=== PATIENT | female | born 1940 | race African-American/Black ===

== ENCOUNTER 2022-07-04 14:30 | Emergency (ER) | payer MEDICARE, OTHER ==
[~2022-07-04] VITALS: Ht 152.4 cm; Wt 105.0 kg
[~2022-07-04 14:30] MED LIST: BENA-8 PO; DIPH25CA83 PO; IBUP100T54 PO; PHEN100C4 PO
[2022-07-04] MEDS ORDERED: ACETAMINOPHEN 325MG TABLET PO STA (17:18)
[2022-07-04 17:44] LABS: BASOPHILS % 0.7 % (0.0-2.0); EOSINOPHILS % 0.1 % (0.0-5.0); HEMATOCRIT. 35.4 % (36.0-48.0); HEMOGLOBIN. 11.4 g/dL (12.0-16.0); LYMPHOCYTES % 21.8 % (20.0-50.0); MEAN CORPUSCULAR HEMOGLOBIN 26.2 pg (28.0-32.0); MEAN CORPUSCULAR VOLUME 81.3 fL (81.0-99.0); MEAN PLATELET VOLUME 8.9 fl (7.4-10.4); MONOCYTES % 11.7 % (2.0-8.0); NEUTROPHILS % 65.7 % (40.0-76.0); PLATELET 340 x1000/uL (130-400); RED BLOOD CELL COUNT 4.35 mill/uL (4.2-5.4); RED CELL DISTRIBUTION WIDTH 17.9 % (11.6-14.6)
[2022-07-04 17:57] LABS: CHLORIDE 103 mEq/L (98-107)
[2022-07-04 20:58] LABS: CLARITY URINE CLEAR (CLEAR); COLOR URINE YELLOW (YELLOW); KETONES URINE 1+ (NEGATIVE); LEUKOCYTE ESTERASE URINE 1+ (NEGATIVE); NITRITE URINE NEGATIVE (NEGATIVE); OCCULT BLOOD URINE NEGATIVE (NEGATIVE); PH URINE 6.5 (4.5-8.0); PROTEIN URINE NEGATIVE (NEGATIVE); SPECIFIC GRAVITY URINE 1.021 (1.005-1.030)
[2022-07-04 21:41] VITALS: BP 122/62
== END 2022-07-04 21:46 | disposition home or self-care (01) ==
LOC: ER 14:44
DX: I11.0 Hypertensive heart disease with heart failure (principal); I50.9 Heart failure, unspecified; J45.909 Unspecified asthma, uncomplicated; M79.606 Pain in leg, unspecified
CPT/HCPCS: 36415; 71045; 80053; 81003; 83880; 85025; 93005; 93970; 99285

== ENCOUNTER 2022-11-11 12:08 | Inpatient (IN) | payer MEDICARE, OTHER ==
[~2022-11-11] VITALS: Ht 152.4 cm; Wt 108.2 kg
[2022-11-11] MEDS ORDERED: FUROSEMIDE 40MG/4ML VIAL IV ONE (12:45)
[2022-11-11] MEDS ORDERED: NITROGLYCERIN 0.4MG TABLET SL SL PRN (12:45)
[2022-11-11] MEDS ORDERED: ASPIRIN 81MG TABLET PO ONE (12:45)
[2022-11-11] MEDS ORDERED: DILTIAZEM HCL 60MG TABLET PO SCH (13:00)
[2022-11-11 13:12] LABS: BASOPHILS % 0.5 % (0.0-2.0); EOSINOPHILS % 0.1 % (0.0-5.0); HEMOGLOBIN. 10.5 g/dL (12.0-16.0); LYMPHOCYTES % 9.7 % (20.0-50.0); MEAN CORPUSCULAR VOLUME 75.4 fL (81.0-99.0); MEAN PLATELET VOLUME 8.7 fl (7.4-10.4); MONOCYTES % 9.1 % (2.0-8.0); NEUTROPHILS % 80.6 % (40.0-76.0); PLATELET 281 x1000/uL (130-400); RED BLOOD CELL COUNT 4.37 mill/uL (4.2-5.4); RED CELL DISTRIBUTION WIDTH 18.9 % (11.6-14.6)
[2022-11-11 13:23] LABS: CHLORIDE 106 mEq/L (98-107)
[2022-11-11 13:25] LABS: D-DIMER 1.23 mg/L FEU (<0.50); INR 1.1; PROTHROMBIN TIME 11.8 sec (9.6-11.0)
[2022-11-11] MEDS: DILTIAZEM HCL 30MG TABLET PO SCH ×3 (13:26→23:46)
[2022-11-11 13:41] LABS: T4 FREE 1.19 ng/dL (0.76-1.46)
[2022-11-11] MEDS ORDERED: ENOXAPARIN 120MG/0.8ML SYR SUBCUT SCH (15:00)
[2022-11-11] MEDS ORDERED: ENOXAPARIN 120MG/0.8ML SYR SUBCUT ONE (16:00)
[2022-11-11] MEDS: APIXABAN 5 MG TABLET PO SCH (17:56)
[2022-11-11] MEDS: FUROSEMIDE 40MG/4ML VIAL IVP SCH (17:56)
[2022-11-11] MEDS ORDERED: DILTIAZEM HCL 30MG TABLET PO SCH (18:00)
[2022-11-11 19:20] VITALS: BP 112/72
[2022-11-11 20:00] VITALS: BP 112/72
[2022-11-11] MEDS ORDERED: ACETAMINOPHEN 325MG TABLET PO PRN (22:00)
[2022-11-11] MEDS ORDERED: HYDROCODONE/ACETAMINOPHEN 5/325MG TABLET PO PRN (22:00)
[2022-11-11] MEDS ORDERED: ONDANSETRON HCL 4MG/2ML INJ IV PRN (22:00)
[2022-11-11 22:19] LABS: HEPATITIS B SURFACE ANTIGEN NEGATIVE
[2022-11-11] MEDS: PHENYTOIN SODIUM EXTENDED 100MG CAPSULE PO SCH (22:21)
[2022-11-11] MEDS ORDERED: HYDR-459 PO (22:44)
[2022-11-11] MEDS ORDERED: METO25TA6 PO (22:44)
[2022-11-11] MEDS ORDERED: BENA40TA91 PO (22:44)
[2022-11-11] MEDS ORDERED: PANT40TA51 PO (22:44)
[2022-11-11] MEDS ORDERED: POTA-202 PO (22:44)
[2022-11-11] MEDS ORDERED: FURO40TA5 PO (22:44)
[2022-11-11] MEDS ORDERED: ATOR10TA69 PO (22:44)
[2022-11-11] MEDS ORDERED: APIX5TAB PO (22:44)
[2022-11-11] MEDS ORDERED: DIGO125T80 PO (22:44)
[2022-11-12] VITALS: BP 93/47
[2022-11-12 04:00] VITALS: BP 110/54
[2022-11-12] MEDS: DILTIAZEM HCL 30MG TABLET PO SCH ×3 (05:04→17:24)
[2022-11-12 07:26] LABS: BASOPHILS % 1.3 % (0.0-2.0); EOSINOPHILS % 0.1 % (0.0-5.0); HEMOGLOBIN. 9.4 g/dL (12.0-16.0); LYMPHOCYTES % 27.2 % (20.0-50.0); MEAN CORPUSCULAR HEMOGLOBIN 24.1 pg (28.0-32.0); MEAN CORPUSCULAR VOLUME 74.2 fL (81.0-99.0); MEAN PLATELET VOLUME 8.9 fl (7.4-10.4); MONOCYTES % 14.5 % (2.0-8.0); NEUTROPHILS % 56.9 % (40.0-76.0); PLATELET 238 x1000/uL (130-400); RED BLOOD CELL COUNT 3.92 mill/uL (4.2-5.4)
[2022-11-12 08:00] VITALS: BP 107/63
[2022-11-12] MEDS: PHENYTOIN SODIUM EXTENDED 100MG CAPSULE PO SCH (10:07)
[2022-11-12] MEDS: FUROSEMIDE 40MG/4ML VIAL IVP SCH ×2 (10:08→17:24)
[2022-11-12] MEDS: APIXABAN 5 MG TABLET PO SCH ×2 (10:08→16:41)
[2022-11-12] MEDS ORDERED: METOLAZONE 2.5MG TABLET PO SCH ×2 (10:30→16:30)
[2022-11-12 12:00] VITALS: BP 109/17
[2022-11-12 16:00] VITALS: BP 106/65
[2022-11-12] MEDS ORDERED: NALOXONE HCL 0.4MG/ML VIAL IV PRN (18:45)
[2022-11-12 20:00] VITALS: BP 131/49
[2022-11-12] MEDS: CARVEDILOL 3.125 MG TABLET PO SCH (21:39)
[2022-11-13] VITALS: BP 90/53
[2022-11-13 04:00] VITALS: BP 109/54
[2022-11-13] MEDS: DILTIAZEM HCL 30MG TABLET PO SCH ×4 (06:00→17:18)
[2022-11-13 06:17] LABS: BASOPHILS % 0.6 % (0.0-2.0); EOSINOPHILS % 0.1 % (0.0-5.0); HEMATOCRIT. 28.8 % (36.0-48.0); HEMOGLOBIN. 9.3 g/dL (12.0-16.0); LYMPHOCYTES % 26.1 % (20.0-50.0); MEAN CORPUSCULAR HEMOGLOBIN 23.8 pg (28.0-32.0); MEAN CORPUSCULAR VOLUME 74.2 fL (81.0-99.0); MEAN PLATELET VOLUME 8.6 fl (7.4-10.4); MONOCYTES % 12.9 % (2.0-8.0); NEUTROPHILS % 60.3 % (40.0-76.0); PLATELET 255 x1000/uL (130-400); RED BLOOD CELL COUNT 3.89 mill/uL (4.2-5.4); RED CELL DISTRIBUTION WIDTH 18.6 % (11.6-14.6)
[2022-11-13 08:00] VITALS: BP 105/57
[2022-11-13] MEDS: FUROSEMIDE 40MG/4ML VIAL IVP SCH ×2 (08:32→17:18)
[2022-11-13] MEDS: CARVEDILOL 3.125 MG TABLET PO SCH ×2 (08:33→20:49)
[2022-11-13] MEDS: PHENYTOIN SODIUM EXTENDED 100MG CAPSULE PO SCH (08:34)
[2022-11-13] MEDS: APIXABAN 5 MG TABLET PO SCH ×2 (08:34→17:18)
[2022-11-13] MEDS: IPRATROPIUM/ALBUTEROL 0.5-3(2.5)MG/3ML NEB HHN SCH ×5 (09:24→23:50)
[2022-11-13 12:00] VITALS: BP 102/68
[2022-11-13 16:00] VITALS: BP 139/84
[2022-11-13] MEDS ORDERED: METOLAZONE 2.5MG TABLET PO NR (16:45)
[2022-11-13 20:00] VITALS: BP 99/71
[2022-11-14] VITALS: BP 95/42
[2022-11-14] MEDS ORDERED: CARVEDILOL 3.125 MG TABLET PO NR (01:00)
[2022-11-14] MEDS: IPRATROPIUM/ALBUTEROL 0.5-3(2.5)MG/3ML NEB HHN SCH ×4 (03:50→15:11)
[2022-11-14 04:00] VITALS: BP 93/66
[2022-11-14] MEDS: DILTIAZEM HCL 30MG TABLET PO SCH ×3 (05:49→17:04)
[2022-11-14 06:42] LABS: BASOPHILS % 0.8 % (0.0-2.0); EOSINOPHILS % 0.1 % (0.0-5.0); HEMATOCRIT. 30.7 % (36.0-48.0); HEMOGLOBIN. 9.9 g/dL (12.0-16.0); LYMPHOCYTES % 22.7 % (20.0-50.0); MEAN CORPUSCULAR HEMOGLOBIN 23.7 pg (28.0-32.0); MEAN CORPUSCULAR VOLUME 73.6 fL (81.0-99.0); MEAN PLATELET VOLUME 8.4 fl (7.4-10.4); MONOCYTES % 12.6 % (2.0-8.0); NEUTROPHILS % 63.8 % (40.0-76.0); PLATELET 256 x1000/uL (130-400); RED BLOOD CELL COUNT 4.17 mill/uL (4.2-5.4); RED CELL DISTRIBUTION WIDTH 18.9 % (11.6-14.6)
[2022-11-14 08:00] VITALS: BP 90/54
[2022-11-14] MEDS: APIXABAN 5 MG TABLET PO SCH ×2 (08:54→17:01)
[2022-11-14] MEDS: FUROSEMIDE 40MG/4ML VIAL IVP SCH ×2 (08:54→17:01)
[2022-11-14] MEDS: PHENYTOIN SODIUM EXTENDED 100MG CAPSULE PO SCH (08:54)
[2022-11-14] MEDS: CARVEDILOL 3.125 MG TABLET PO SCH ×2 (08:59→21:00)
[2022-11-14 12:00] VITALS: BP 93/52
[2022-11-14 16:00] VITALS: BP 112/62
[2022-11-14 20:00] VITALS: BP 96/46
[2022-11-15] VITALS: BP 112/49
[2022-11-15] MEDS: DILTIAZEM HCL 30MG TABLET PO SCH ×3 (00:40→12:18)
[2022-11-15 04:00] VITALS: BP 114/60
[2022-11-15] MEDS: IPRATROPIUM/ALBUTEROL 0.5-3(2.5)MG/3ML NEB HHN SCH ×2 (04:50→13:20)
[2022-11-15 07:23] LABS: BASOPHILS % 0.6 % (0.0-2.0); EOSINOPHILS % 0.1 % (0.0-5.0); HEMATOCRIT. 30.1 % (36.0-48.0); HEMOGLOBIN. 10.1 g/dL (12.0-16.0); LYMPHOCYTES % 14.4 % (20.0-50.0); MEAN CORPUSCULAR HEMOGLOBIN 24.4 pg (28.0-32.0); MEAN CORPUSCULAR VOLUME 73.1 fL (81.0-99.0); MEAN PLATELET VOLUME 8.5 fl (7.4-10.4); MONOCYTES % 11.8 % (2.0-8.0); NEUTROPHILS % 73.1 % (40.0-76.0); PLATELET 258 x1000/uL (130-400); RED BLOOD CELL COUNT 4.12 mill/uL (4.2-5.4); RED CELL DISTRIBUTION WIDTH 18.3 % (11.6-14.6)
[2022-11-15 08:00] VITALS: BP 107/56
[2022-11-15 08:08] LABS: CHLORIDE 98 mEq/L (98-107)
[2022-11-15] MEDS: PHENYTOIN SODIUM EXTENDED 100MG CAPSULE PO SCH (08:36)
[2022-11-15] MEDS: FUROSEMIDE 40MG/4ML VIAL IVP SCH (08:36)
[2022-11-15] MEDS: CARVEDILOL 3.125 MG TABLET PO SCH (08:36)
[2022-11-15] MEDS: APIXABAN 5 MG TABLET PO SCH (08:37)
[2022-11-15 12:00] VITALS: BP 119/77
[2022-11-15] MEDS ORDERED: POTASSIUM CHLORIDE 20MEQ TABLET SR PO NR (12:00)
[2022-11-15 15:17] VITALS: BP 129/65
[2022-11-15 16:00] VITALS: BP 129/65
== END 2022-11-15 17:10 | disposition home or self-care (01) | DRG 291 ==
LOC: ER 14:43 → 7WST 16:04 → EDBEDREQ 16:10 → EDBEDREQTM 16:10
PROVIDERS: ADMIT Internal Medicine; ATTEND Internal Medicine
DX: I11.0 Hypertensive heart disease with heart failure (principal); I50.23 Acute on chronic systolic (congestive) heart failure; I31.39 Other pericardial effusion (noninflammatory); I47.20 Ventricular tachycardia, unspecified; I48.0 Paroxysmal atrial fibrillation; G40.909 Epilepsy, unspecified, not intractable, without status epilepticus; I08.3 Combined rheumatic disorders of mitral, aortic and tricuspid valves; I42.0 Dilated cardiomyopathy; E78.5 Hyperlipidemia, unspecified; J45.909 Unspecified asthma, uncomplicated; Z87.891 Personal history of nicotine dependence; Z88.0 Allergy status to penicillin; Z88.8 Allergy status to other drugs, medicaments and biological substances
CPT/HCPCS: 36415; 71045; 78580; 80048; 80053; 80061; 83735; 83880; 84439; 84443; 84480; 84484; 85025; 85379; 86803; 87340; 93005; 93306; 93970; 94640; 97116; 97162; 97530; 99285; J1650; J1940